=== PATIENT | male | born 1945 | race Hispanic/Latino ===

== ENCOUNTER 2021-10-30 16:15 | Emergency (ER) | payer BC, OTHER ==
--- OUTSIDE RECORDS SUMMARY | 2021-10-30 16:18 | XMS REPORT | Continuity of Care Document ---
:1945 Author Organization [facility] t Address [address] [place] [address] Care Team Providers Name Role Phone Mely Ashby MD Primary Care Physician Mehta_S Attending Clinician Unavailable Sebas Attending Clinician [phone] Symone_Juliet Attending Clinician Unavailable Lc_Migdalia Attending Clinician Unavailable Bunny Newell Attending Clinician Unavailable Melisaa_Venita Admitting Clinician Unavailable Rejohanna_A Admitting Clinician Unavailable Lc_Migdalia Admitting Clinician Unavailable Physician, Primary or Family Admitting Clinician Unavailabl e Payers Payer Name Policy Type Policy Number Effective Date Expiration Date S charlie [facility] [place] - [id number] 2020 [employer] (MEDICARE 00:00:00 REPLACEMENT/ADVANTA GE - HMO) [facility] [id number] 2020 OPTIONS (MEDICARE 00:00:00 SUPPLEMENT) [place]IC[place]: [id number] 2011 [employer] 00:00:00 Problems Condition Condition Condition Status Onset Resolution Last Treating Co mments Source Name Details Category Date Date Treatment Clinician Date Malignant Malignant Problem Active Nicanor wilma tumor of Tumor of 21 Family prostate Prostate 00:00: Practi c 00 e 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 02-16 Family 00:00: Practic 00 e Parkinson' Parkinson' Problem Active [facility] s disease s Disease 02-16 Fami ly 00:00: Practic 00 e Insomnia Insomnia Problem Active Torres ge 2-12 Family 00:00: Practic 00 e Benign Benign Problem Active [facility] prostatic Prostatic 2-12 Fami ly hyperplasi Hyperplasi 00:00: Pr actic a without a without 00 e outflow Outflow obstructio Obstructio n n No known No known Disease Metho di active active st problems problems Hospit a l Hypothyroi Hypothyroi Problem Active [facility] dis[facility] dism Family Practic e Hyperlipid Hyperlipid Problem Active [facility] emia emia [facility] Pract[facility] e Hypertensi Hypertensi Problem Active [facility] ve ve Family disorder Disorder Practi c e Allergies, Adverse Reactions, Alerts Allergy Allergy Status Severity Reaction(s) Onset Inactive Treating Comm ents Source Name Type Date Date Clinician No Known DA Active [facility] All[facility]ie 08-15 [facility] 00:00: [facility] [address] [facility] Family History Family Member Diagnosis Comments Start Date Stop Date Source Natural father No Known Problems Met [facility] Natural mother No Known Problems Met [facility] Social History Social Habit Start Date Stop Date Quantity Comments Source Tobacco use and 2017-11-30 2017-11-30 Smokeless tobacco Me [facility] exposure 00:00:00 00:00:00 non-user Hospital Sex Ass[birth year] At [birth year] [facility] 00:00:00 00:00:00 Hospital Smoking Status Start Date Stop Date Source Never smoked tobacco [facility] Medications Ordered Filled Start Stop Current Ordering Indication Dosage Frequency Signature Comments Components Source Medication Medication Date Date Medication? Clinician (SIG) Name Name amLODIPine- Yes 1{tbl} QD Take 1 Me thodi valsartan-h 4-[address] cthiazid 15:29: mouth Hospita 10-160-12.5 58 daily. l mg tablet levothyroxi Yes 75ug QD Take 75 Met hodi ne 4-[address] (SYNTHROID, 15:29: mouth Hospi ta LEVOXYL) 75 58 every l mcg tablet morning. simvastatin Yes 20mg QD Take 20 mg Methodi (ZOCOR) 20 4-[address] MG tablet 15:29: nightly. Hosp allan 58 l zolpidem Yes 10mg QD Take 10 mg Met hodi (AMBIEN) 10 4-[address] mg tablet 15:29: nightly as Ho spita 58 needed for l sleep. albuterol albuterol No albuterol [facility] sulfate HFA sulfate HFA sulfate Family 90 90 HFA 90 Practic mcg/actuati mcg/actuati mcg/actuat e on aerosol on aerosol ion inhaler inhaler aerosol inhaler amlodipine amlodipine No amlodipine [facility] 10 mg 10 mg 10 mg Family tablet TAKE tablet TAKE tablet Practic 1 TABLET BY 1 TABLET BY TAKE 1 e MOUTH EVERY MOUTH EVERY TABLET BY DAY DAY MOUTH EVERY DAY bicalutamid bicalutamid No bicalutami [facility] e 50 mg e 50 mg de 50 mg Famil y tablet TAKE tablet TAKE tablet Practic 1 TABLET 1 TABLET TAKE 1 e EVERY DAY EVERY DAY TABLET BY ORAL BY ORAL EVERY DAY ROUTE FOR ROUTE FOR BY ORAL 30 DAYS. 30 DAYS. ROUTE FOR 30 DAYS. doxycycline doxycycline No doxycyclin [facility] hyclate 100 hyclate 100 e hyclate Family mg tablet mg tablet 100 mg Pra ctic tablet e hydrochloro hydrochloro No hydrochlor [facility] thiazide thiazide othiazide Fa jeff 12.5 mg 12.5 mg 12.5 mg Practi c capsule capsule capsule e TAKE 1 TAKE 1 TAKE 1 CAPSULE BY CAPSULE BY CAPSULE BY MOUTH EVERY MOUTH EVERY MOUTH DAY DAY EVERY DAY levothyroxi levothyroxi No levothyrox [facility] ne 75 mcg ne 75 mcg ine 75 mcg Family tablet TAKE tablet TAKE tablet Practic 1 TABLET BY 1 TABLET BY TAKE 1 e MOUTH EVERY MOUTH EVERY TABLET BY DAY DAY MOUTH EVERY DAY ondansetron ondansetron No ondansetro [facility] 4 mg 4 mg n 4 mg Family disintegrat disintegrat disintegra Practic ing tablet ing tablet ting e tablet oxybutynin oxybutynin No oxybutynin [facility] chloride ER chloride ER chloride [facility] 10 mg 10 mg ER 10 mg Practic tablet,exte tablet,exte tablet,ext e nded nded ended release 24 release 24 release 24 hr TAKE 1 hr TAKE 1 hr TAKE 1 TABLET BY TABLET BY TABLET BY MOUTH EVERY MOUTH EVERY MOUTH DAY DAY EVERY DAY simvastatin simvastatin No simvastati [facility] 20 mg 20 mg n 20 mg Family tablet TAKE tablet TAKE tablet Practic 1 TABLET BY 1 TABLET BY TAKE 1 e MOUTH EVERY MOUTH EVERY TABLET BY DAY DAY MOUTH EVERY DAY solifenacin solifenacin No solifenaci [facility] 10 mg 10 mg n 10 mg Family tablet tablet tablet Practic e tamsulosin tamsulosin No tamsulosin [facility] 0.4 mg 0.4 mg 0.4 mg [facility] capsule capsule capsule Practi c e valsartan valsartan No valsartan [facility] 160 mg 160 mg 160 mg [facility] tablet TAKE tablet TAKE tablet Practic 1 TABLET BY 1 TABLET BY TAKE 1 e MOUTH EVERY MOUTH EVERY TABLET BY DAY DAY MOUTH EVERY DAY Immunizations Ordered Immunization Filled Immunization Date Status Commen ts Source Name Name influenza, high-dose, influenza, high-dose, 2021-05-11 [facility] quadrivalent quadrivalent 12:53:00 Practice COVID-19, mRNA, COVID-19, mRNA, 2021-04-07 Completed [facility] LNP-S, PF, 30 mcg/0.3 LNP-S, PF, 30 mcg/0.3 00:00:00 Practice mL dose mL dose (Colorescience) (Colorescience) COVID-19 (SARS-COV-2) COVID-19 (SARS-COV-2) 2020-10-16 [facility] vaccine, unspecified vaccine, unspecified 00:00:00 Practice COVID-19 (SARS-COV-2) COVID-19 (SARS-COV-2) 2020-09-21 Completed [facility] vaccine, unspecified vaccine, unspecified 00:00:00 Practice zoster recombinant zoster recombinant 2018-02-08 [facility] 11:56:00 Practice pneumococcal pneumococcal 2017-09-24 [facility] jeff polysaccharide PPV23 polysaccharide PPV23 13:08:00 Practice pneumococcal, pneumococcal, 2015-08-13 [facility] unspecified unspecified 00:00:00 Practice formulation formulation zoster live [facility] Vital Signs Vital Name Observation Time Observation Value Comments Source BP Diastolic 2021-08-26 00:00:00 70 mm[Hg] [facility] Height 2021-08-26 00:00:00 71 [in_i] [facility] BMI (Body Mass 2021-08-26 00:00:00 25.1 kg/m2 [facility] Index) Practice BP Systolic 2021-08-26 00:00:00 135 mm[Hg] [facility] Body Weight 2021-08-26 00:00:00 180 [lb_av] [facility] BP Diastolic 2021-05-11 00:00:00 70 mm[Hg] [facility] Height 2021-05-11 00:00:00 71 [in_i] [facility] BMI (Body Mass 2021-05-11 00:00:00 25.5 kg/m2 [facility] BP Systolic 2021-05-11 00:00:00 125 mm[Hg] [facility] Body Weight 2021-05-11 00:00:00 183 [lb_av] [facility] BP Diastolic 2021-02-16 00:00:00 65 mm[Hg] [facility] Height 2021-02-16 00:00:00 71 [in_i] [facility] BMI (Body Mass 2021-02-16 00:00:00 25.8 kg/m2 [facility] BP Systolic 2021-02-16 00:00:00 130 mm[Hg] [facility] Body Weight 2021-02-16 00:00:00 185 [lb_av] [facility] BP Diastolic 2021-02-03 00:00:00 65 mm[Hg] [facility] Height 2021-02-03 00:00:00 71 [in_i] [facility] BMI (Body Mass 2021-02-03 00:00:00 25.7 kg/m2 [facility] BP Systolic 2021-02-03 00:00:00 120 mm[Hg] [facility] Body Weight 2021-02-03 00:00:00 184 [lb_av] [facility] BP Diastolic 2020-11-24 00:00:00 70 mm[Hg] [facility] Height 2020-11-24 00:00:00 71 [in_i] [facility] BMI (Body Mass 2020-11-24 00:00:00 26.6 kg/m2 [facility] BP Systolic 2020-11-24 00:00:00 130 mm[Hg] [facility] Body Weight 2020-11-24 00:00:00 191 [lb_av] [facility] BP Diastolic 2020-02-23 00:00:00 68 mm[Hg] [facility] Height 2020-02-23 00:00:00 71 [in_i] [facility] BMI (Body Mass 2020-02-23 00:00:00 28.3 kg/m2 [facility] BP Systolic 2020-02-23 00:00:00 124 mm[Hg] [facility] Practice Body Weight 2020-02-23 00:00:00 203 [lb_av] [facility] Height 2019-12-18 00:00:00 71 [in_i] [facility] Practice BMI (Body Mass 2019-12-18 00:00:00 29.3 kg/m2 [facility] Body Weight 2019-12-18 00:00:00 210 [lb_av] [facility] Practice BP Diastolic 2019-05-22 00:00:00 66 mm[Hg] [facility] Height 2019-05-22 00:00:00 71 [in_i] [facility] Practice BMI (Body Mass 2019-05-22 00:00:00 29.3 kg/m2 [facility] BP Systolic 2019-05-22 00:00:00 124 mm[Hg] [facility] Practice Body Weight 2019-05-22 00:00:00 210.4 [lb_av] [facility] Practice BP Diastolic 2018-10-25 00:00:00 70 mm[Hg] [facility] Practice Height 2018-10-25 00:00:00 71 [in_i] [facility] Practice BMI (Body Mass 2018-10-25 00:00:00 28.6 kg/m2 [facility] BP Systolic 2018-10-25 00:00:00 130 mm[Hg] [facility] Practice Body Weight 2018-10-25 00:00:00 205 [lb_av] [facility] Practice Procedures Procedure Date / Time Performing Clinician Source Performed Prostatectomy 2021-05-13 00:00:00 Clarence price Practice electrocardiogram 2021-05-11 00:00:00 [facility] Elida aguilar Practice X-RAY OF SHOULDER 2 VIEW 2021-02-03 00:00:00 [facility] Colonoscopy 2016-08-13 00:00:00 Clarence price Practice Plan of Care Planned Activity Planned Date Details Comments Source Future Scheduled Test 2021-07-28 [facility] [code = COVID-19 VACCINE (1)] Future Scheduled Test 2021-07-28 Hepatitis C Method [facility] 03:24:29 screening (procedure) [code = [id number]] Future Scheduled Test 2021-07-28 COLONOSCOPY Method [facility] 03:24:29 SCREENING [code = COLONOSCOPY SCREENING] Future Scheduled Test 2021-07-28 SHINGLES VACCINES [facility] 03:24:29 (#2) [code = SHINGLES VACCINES (#2)] Future Scheduled Test 2021-07-28 INFLUENZA VACCINE [facility] 03:24:29 [code = INFLUENZA VACCINE] Future Appointment 2022-02-16 Kingsley Platt, [address] [facility] 09:00[facility] [address], [place] [address] Encounters Start End Encounter Admission Attending Care Care Encounter Source Date/Time Date/Time Type Type Clinicians Facility Department ID 2021-09-16 2021-09-16 Outpatient Mehta_S [facility]U U [id number] [place] 10:45:00 10:45:00 [facility] 2021-09-15 2021-09-15 Outpatient Mehta_S HMU [id number]- [place] 02:45:00 02:45:00 [facility] 2021-09-15 2021-09-15 Outpatient Mullen, HMU HMU [id number] 00:00:00 00:00:00 Gui [id number] 2021-09-14 2021-09-14 Outpatient Mehta_S HMU HMU [id number] [place] 02:19:00 02:19:00 [facility] 2021-08-29 2021-08-29 Outpatient Mehta_S HMU [id number] [place] 03:33:00 03:33:00 [facility] 2021-08-29 2021-08-29 Outpatient Mehta_S HMU HMU [id number] [place] 03:33:00 03:33:00 [facility] 2021-08-26 2021-08-26 Outpatient VFP VFP [id number] [facility] 03:49:00 03:49:00 [id number] Family Practic e 2021-08-26 2021-08-26 Outpatient Reichman_A VFP VFP [id number] [facility] 03:49:00 03:49:00 Family Practic e 2021-08-26 2021-08-26 [place] [facility]FP [place] - [id number] [facility] 00:00:00 00:00:00 [facility] MD: Medical - Prac tic [id number] VM_HOU_Suga e [facility] [address], [place] [address] , Ph. 2021-08-22 2021-08-22 Outpatient Lc_D VFP VFP [id number] - [facility] 11:23:00 11:23:00 [id number] Family Practic e 2021-08-15 2021-08-15 Emergency EM [place], [facility] [id number] [facility] 09:29:00 14:20:00 [facility] [id number] [facility] are [facility] 2021-08-15 2021-08-15 Emergency EM [place], HCANC [facility]ANC [id number] [facility] 09:29:00 14:20:00 [facility] 96 [facility] are [facility] 2021-08-05 2021-08-05 Outpatient Mehta_S HMU HMU [id number]- [place] 02:37:00 02:37:00 [facility] 2021-06-16 2021-06-16 Outpatient Reichman_A VFP VFP [id number] [facility] 04:32:00 04:32:00 [id number] Family Practic e 2021-06-16 2021-06-16 Outpatient Reichman_A VFP VFP [id number] [facility] 04:32:00 04:32:00 [id number] Family Practic e 2021-06-01 2021-06-01 Outpatient Mehta_S HMU HMU [id number]- [place] 12:06:00 12:06:00 [id number] [facility] 2021-05-31 2021-05-31 Outpatient Mehta_S HMU HMU [id number]- [place] 08:56:00 08:56:00 [id number] [facility] 2021-05-31 2021-05-31 Outpatient Mullen, HMU HMU [id number] 00:00:00 00:00:00 Gui [id number] 2021-05-26 2021-05-26 Outpatient Mehta_S HMU U [id number]- [place] 10:41:00 10:41:00 [id number] [facility] 2021-05-23 2021-05-23 Outpatient Mehta_S HMU U [id number] [place] 06:52:00 06:52:00 [id number] [facility] 2021-05-20 2021-05-20 Outpatient Mehta_S HMU U [id number] [place] 11:35:00 11:35:00 [id number] [facility] 2021-05-20 2021-05-20 Outpatient Mullen, HMU U [id number] 00:00:00 00:00:00 Gui [id number] 2021-05-19 2021-05-19 Outpatient Mehta_S HMU U [id number]- [place] 11:58:00 11:58:00 [id number] [facility] 2021-05-14 2021-05-14 Outpatient Mehta_S HMU U [id number] [place] 07:23:00 07:23:00 [id number] [facility] 2021-05-11 2021-05-11 Outpatient Reichman_A VFP VFP [id number] [place] [address] 12:09:00 12:09:00 [id number] Family Practic e 2021-05-11 2021-05-11 Outpatient Reichman_A VFP VFP [id number] [place] [address] 12:09:00 12:09:00 [id number] Family Practic e 2021-05-11 2021-05-11 [place] [facility] [place] - [id number] [facility] 00:00:00 00:00:00 Aristides Platt MD: Medical - Prac tic 560[address] DENISE_MARQUIS_Royce [address] [address] , Ph. 2021-05-10 2021-05-10 Outpatient Mehta_S HMU [id number] [place] 02:54:00 02:54:00 [id number] [facility] 2021-05-02 2021-05-02 Outpatient Mehta_S HMU HMU [id number] [place] 10:22:00 10:22:00 [id number] [facility] 2021-05-02 2021-05-02 Outpatient Reichman_A VFP VFP [id number] [facility] 04:06:00 04:06:00 [id number] Family Practic e 2021-05-02 2021-05-02 Outpatient VFP VFP [id number] [facility] 04:06:00 04:06:00 [id number] Family Practic e 2021-04-29 2021-04-29 Outpatient Mehta_S HMU HMU [id number] [place] 01:22:00 01:22:00 [id number] [facility] 2021-04-29 2021-04-29 Outpatient Mullen, HMU HMU [id number] 00:00:00 00:00:00 Gui [id number] 2021-04-27 2021-04-27 Outpatient Mehta_S HMU HMU [id number] [place] 04:22:00 04:22:00 [id number] [facility] 2021-04-27 2021-04-27 Outpatient Mehta_S HMU HMU [id number] [place] 04:22:00 04:22:00 [id number] [facility] 2021-04-22 2021-04-22 Outpatient Mehta_S HMU HMU [id number] [place] 09:29:00 09:29:00 [id number] [facility] 2021-04-19 2021-04-19 Outpatient Mehta_S HMU HMU [id number] [place] 02:35:00 02:35:00 [id number] [facility] 2021-04-19 2021-04-19 Outpatient Mullen, HMU HMU [id number] 00:00:00 00:00:00 Gui [id number] 2021-04-08 2021-04-08 Outpatient Mehta_S HMU HMU [id number] [place] 06:26:00 06:26:00 [id number] [facility] 2021-03-17 2021-03-17 Outpatient Reichman_A VFP VFP [id number] [facility] 11:21:00 11:21:00 [id number] Family Practic e 2021-03-10 2021-03-10 Outpatient Mehta_S HMU U [id number]- [place] 02:36:00 02:36:00 [id number] [facility] 2021-03-10 2021-03-10 Outpatient Mullen, HMU U [id number] 00:00:00 00:00:00 Gui [id number] 2021-03-02 2021-03-02 Outpatient Mehta_S HMU U [id number] [place] 10:43:00 10:43:00 [id number] [facility] 2021-03-02 2021-03-02 Outpatient Mehta_S U [facility] [id number] [place] 10:43:00 10:43:00 [id number] [facility] 2021-02-19 2021-02-19 Outpatient Reichman_A VFP VFP [id number] [place] [address] 08:40:00 08:40:00 [id number] Family Practic e 2021-02-16 2021-02-16 Outpatient Reichman_A VFP VFP [id number] [facility] 10:42:00 10:42:00 [id number] Family Practic e 2021-02-16 2021-02-16 [place] [facility] [place] - [id number] [facility] 00:00:00 00:00:00 [facility] MD: Medical - Prac tic [id number] [facility]_HOU_[place] e [address] [address] , Ph. 2021-02-09 2021-02-09 Outpatient Reichman_A VFP VFP [id number] [facility] 07:45:00 07:45:00 [id number] Family Practic e 2021-02-09 2021-02-09 Outpatient VFP VFP [id number] [place] [address] 07:45:00 07:45:00 [id number] Family Practic e 2021-02-03 2021-02-03 Outpatient Reichman_A VFP VFP [id number] [facility] 12:04:00 12:04:00 [id number] Family Practic e 2021-02-03 2021-02-03 [place] [facility] [place] - [id number] [facility] 00:00:00 00:00:00 [facility] MD: Medical - Prac tic [id number] [facility]_HOU_[place] e [facility] [address], [place] [address] , Ph. 2020-11-26 2020-11-26 Outpatient Reichman_A VFP VFP [id number] [facility] 08:24:00 08:24:00 [id number] Family Practic e 2020-11-26 2020-11-26 Outpatient VFP VFP [id number] [facility] 08:24:00 08:24:00 [id number] Family Practic e 2020-11-24 2020-11-24 Outpatient Reichman_A VFP VFP [id number] [facility] 10:35:00 10:35:00 [id number] Family Practic e 2020-11-24 2020-11-24 Outpatient Reed_D VFP VFP [id number] [facility] 09:36:00 09:36:00 [id number] Family Practic e 2020-11-24 2020-11-24 [place] VFP [place] - [id number] [facility] 00:00:00 00:00:00 [facility] MD: Medical - Prac tic [id number] VM_HOU_S[place] e [facility] [address], [place] [address] , Ph. 2020-11-22 2020-11-22 Outpatient Reed_D VFP VFP [id number] [facility] 12:22:00 12:22:00 [id number] Family Practic e 2020-03-11 2020-03-11 Outpatient Reichman_A VFP VFP [id number] [facility] 01:27:00 01:27:00 [id number] Family Practic e 2020-02-26 2020-02-26 Outpatient Reichman_A VFP VFP [id number] [facility] 05:20:00 05:20:00 [id number] Family Practic e 2020-02-23 2020-02-23 Outpatient Reichman_A VFP VFP [id number] [facility] 11:11:00 11:11:00 [id number] Family Practic e 2020-02-23 2020-02-23 Tone J VFP [place] - [id number] [facility] 00:00:00 00:00:00 Clarence Ashby Natalie price MD: [id number] Medical - Prac tic VM_HOU_S[place] e [facility] [address], [place] [address] , Ph. 2020-01-06 2020-01-06 Outpatient Reichman_A VFP VFP [id number] [facility] 03:00:00 03:00:00 [id number] Family Practic e 2020-01-06 2020-01-06 Outpatient VFP VFP [id number] [facility] 03:00:00 03:00:00 [id number] Family Practic e 2019-12-19 2019-12-19 Outpatient Reichman_A VFP VFP [id number] [facility] 08:48:00 08:48:00 [id number] Family Practic e 2019-12-19 2019-12-19 Outpatient VFP VFP [id number] [facility] 08:48:00 08:48:00 [id number] Family Practic e 2019-12-18 2019-12-18 Outpatient Reichman_A VFP VFP [id number] [facility] 01:14:00 01:14:00 [id number] Family Practic e 2019-12-18 2019-12-18 Tone [place] VFP [place] - [id number] [facility] 00:00:00 00:00:00 Clarence Ashbyargentina price MD: [id number] Medical - Prac tic VM_HOU_[place] [facility] [address] [address] , Ph. 2019-06-19 2019-06-19 Outpatient VFP VFP [id number] [facility] 12:04:00 12:04:00 [id number] Family Practic e 2019-05-22 2019-05-22 Tone [place] VFP [place] - [id number] [facility] 00:00:00 00:00:00 Clarence Ashby Natalie price MD: [id number] Family Practi c SW Practice - e [facility] [address], [place] [address] , Ph. 2018-10-25 2018-10-25 Tone Boone [facility] [place] - [id number] V illage 00:00:00 00:00:00 Clarence Ashby ly MD: [id number] [facility] [address], [place] [address] , Ph. Results Test Description Test Time Test Comments Results Result [facility] e Comments - CT ABD PELVIS 2021-08-15 W/CONT 12:16:00 [facility] 1945 Sex: M Gordon tient Name: NEISHA ZUNIGA JRO Unit No: [id number] EXAMS: CPT CODE: [id number] CT ABD PELVIS W/CONT 62293 CT ABDOMEN AND PELVIS DICTATION LOCATION A1 HISTORY: Abdominal pain. TECHNIQUE: Axial images the abdomen and pelvis were obtained following intravenous administration of 95 mL Isovue-300 contrast at 11:52 AM. No prior exams are available for comparison. All CT scans are performed using radiation dose reduction techniques. Technical factors are evaluated and adjusted to ensure appropriate moderation of exposure. Automated dose management technology is applied to adjust the radiation dose to minimize exposure while achieving a diagnostic-quality image. FINDINGS: The lung bases are clear. No pleural or pericardial effusion is seen. The liver, gallbladder, pancreas, spleen, right adrenal gland and kidneys are unremarkable. There appears be left adrenal hyperplasia. Diverticulosis is seen in the colon without evidence of acute inflammation. A small sized hiatal hernia is present. The appendix is normal. The remaining enteric structures of the abdomen and pelvis as well as the vascular structures and the genitourinary structures of the pelvis show no acute findings. No adenopathy, mass or fluid collection is seen in the abdomen, retroperitoneum or pelvis. Review of the skeleton with bone windows shows degenerative changes and probable old healed lower right rib fractures, but no acute or destructive process. IMPRESSION: 1. Small hiatal hernia. 2. Diverticulosis without evidence of diverticulitis. 3. Probable left adrenal gland hyperplasia. 4. No other obvious acute findings. at 1216 Reported and signed by: Derrick Reyna Jr, MD CC: Self Referred; Obinna Newell MD Technologist: Anisha Hemphill CTDI: 7.87 DLP: 455.39 Trscr Dt/Tm: 08/15/2021 (1216) by:EliseoFAM Electronic Signature Date/Time: 08/15/2021 (1216)Orig Print D/T: S: 08/15/2021 (1220) Name: ADE[facility]IGA [facility] [place]: [place] [address] : 1945 Age: 76 Sex: [place] [address] Loc: [facility] Exam Date: 08/15/2021 Status: REG ER PH: FAX: PAGE 1 Signed Report COVID 19 INHOUSE AG 2021-08-15 10:59:00 Test Item Value Reference Range Interpretation Comme nts COVID 19 INHOUSE AG (test code POSITIVE Negative A Critical Value reported toFirst = [id number]) Name:LORRAINETAMIRLEELEE Maldonado Last Name:ROB Title:RNRESULTS READ BACK AND VERIFIEDby [id number], on 08/15/21, @ 1059.Negative r esults do not preclude 2019-n CoV infection andshould not b e used as the sole basis for treat ment or otherpatient management deci sions. Negative results must be combined with clinical observ ations, patient history, andepi demiological information. B-TYPE NATRIURETIC [id number] 10:36:00 Test Item Value Reference Range Interpretation Comments B-TYPE NATRIURETIC PEPTIDE (test 180 pg/mL 0-100 H code = BNP) [id number] 10:20:00 Test Item Value Reference Range Interpretation Comments MAGNESIUM (test code = MAG) 1.9 mg/dL 1.8-2.4 N TROP-I HIGH [id number] 10:20:00 Test Item Value Reference Range Interpretation Comments TROP-I HIGH SENSITIVITY 7 pg/mL 0-78 N CAUT ION: Units of the (test code = TROPIHS) curren t test methodology (pg /mL) differ from th e prior test methodolog y (ng/mL) by a fa ctor of 1000. BASIC METABOLIC [id number] 10:20:00 Test Item Value Reference Range Interpretation Comments SODIUM (test code 129 mmol/L 135-145 L = NA) POTASSIUM (test 3.2 mmol/L 3.5-5.1 L code = K) CHLORIDE (test 92 mmol/L 98-107 L code = CL) CARBON DIOXIDE 27 mmol/L 21-32 N (test code = CO2) ANION GAP (test 13.2 2.0-16.0 N code = GAP) GLUCOSE (test code 128 mg/dL 65-99 H = GLU) BLOOD UREA 15 mg/dL 4-23 N NITROGEN (test code = BUN) GLOMERULAR >=60 max The estimated FILTRATION RATE estimate ml/min glomerula r (test code = GFR) filtration rate is computed usingpatient ra ce, age (>18), sex, and serum creatinin e. If anyof the neede d data elements a re missing the Laboratory mathieu ot compute an estimation of t he glomerular filtration rate . CREATININE (test 0.8 mg/dL 0.6-1.5 N code = CREAT) BUN/CREATININE 18.8 12.0-20.0 N RATIO (test code = BUN/CREA) CALCIUM (test code 8.2 mg/dL 8.5-10.1 L = CA) LIVER FUNCTION [id number] 10:20:00 Test Item Value Reference Range Interpretation Comments TOTAL PROTEIN 6.9 g/dL 6.4-8.2 N (test code = PROT) ALBUMIN (test code 3.4 g/dL 3.4-5.0 N = ALB) GLOBULIN (test 3.5 g/dL 2.3-3.5 N code = GLOB) BILIRUBIN TOTAL 0.4 mg/dL 0.2-1.2 N Use of this assay is not (test code = BILT) recommend ed for patients undergoingtreat ment with Eltrombopag due to the potential for falselyelevated results. BILIRUBIN DIRECT 0.1 mg/dL 0.0-0.3 N (test code = BILD) BILIRUBIN INDIRECT 0.3 mg/dL 0.0-0.8 N (test code = BILIND) SGOT/AST (test 23 U/L 15-37 N code = AST) SGPT/ALT (test 35 U/L 6-50 N code = ALT) ALKALINE 64 U/L 45-117 N PHOSPHATASE (test code = ALKP) [id number] 10:20:00 Test Item Value Reference Range Interpretation Comments LIPASE (test code = LIP) 500 U/L 73-393 H - XR CHEST 1 [id number] 10:15:00 [facility] 1945 Sex: MPatient Name: ADEOLA ZUNIGA JR Unit No: [id number] EXAMS: CPT CODE: [id number] XR CHEST 1 V [id number] EXAM: XR Chest 1 View INDICATION: Chest Pain LOCATION CODE: A1 COMPARISON: None available. TECHNIQUE: Frontal view of the chest was obtained. FINDINGS: The lungs are clear. There is nopleural effusion or pneumothorax. The cardiomediastinal silhouette is unremarkable. No acuteosseous abnormality is identified. There are several healed right rib fractures. IMPRESSION: No acute cardiopulmonary abnormality. at 1015 Reported and signed by: Alia Lowe M.D. CC: Obinna Newell MD Technologist: Austin Aguirre Time: DAP (Gy m2): Air Kerma (mGy): Trscr Dt/Tm: 08/15/2021 (1015) by:[email or web address] Electronic Signature Date/Time: 08/15/2021(1015)Orig Print D/T: S: 08/15/2021 (1018) Name: ADEOLA ZUNIGA JR [facility] [place] Phys: [place] [address] : 1945 Age: 76 Sex: [place] [id number] Loc: [place] Exam Date: 08/15/2021 Status: PRE ER PH: FAX: PAGE 1 Signed ReportCBC W/AUTO [id number] 10:01:00 Test Item Value Reference Range Interpretation Comments WHITE BLOOD CELL (test code = 3.5 10 3/uL 4.5-11.0 L WBC) RED BLOOD CELL (test code = 3.92 10 6/uL 4.30-5.90 L RBC) HEMOGLOBIN (test code = HGB) 11.9 g/dL 14.0-18.0 L HEMATOCRIT (test code = HCT) 33.1 % 40.0-55.0 L MEAN CELL VOLUME (test code = 84 fL 81-102 N MCV) MEAN CELL HGB (test code = 30.4 pg 26.0-34.0 N MCH) MEAN CELL HGB CONCENTRATION 36.0 g/dL 31.0-37.0 N (test code = MCHC) RED CELL DISTRIBUTION WIDTH 12.0 % 11.6-14.4 N (test code = RDW) PLATELET COUNT (test code = 164 10 3/uL 150-400 N PLT) MEAN PLATELET VOLUME (test 9.7 fL 9.0-12.6 N code = MPV) NEUTROPHIL % (test code = NT%) 77.5 % 33.0-76.0 H IMMATURE GRANULOCYTE % (test 0.3 % 0.0-1.0 N code = IG%) LYMPHOCYTE % (test code = LY%) 10.1 % 14.0-56.4 L MONOCYTE % (test code = MO%) 11.8 % 0.0-12.9 N EOSINOPHIL % (test code = EO%) 0.3 % 0.0-7.0 N BASOPHIL % (test code = BA%) 0.0 % 0-2.0 N NUCLEATED RBC % (test code = 0.0 % 0-0.2 N NRBC%) NEUTROPHIL # (test code = NT#) 2.69 10 3/uL 1.5-7.0 N IMMATURE GRANULOCYTE # (test 0.010 x10 3/uL 0.000-0.100 N code = IG#) LYMPHOCYTE # (test code = LY#) 0.35 10 3/uL 1.50-4.00 L MONOCYTE # (test code = MO#) 0.41 10 3/uL 0.20-0.80 N EOSINOPHIL # (test code = EO#) 0.01 10 3/uL 0.0-0.5 N BASOPHIL # (test code = BA#) 0.00 10 3/uL 0.0-0.1 N Triiodothyronine (T3) Free [Mass/volume] in Serum or [id number] 12:04:00 Test Item Value Reference Range Interpretation Comments T3 free (test code = T3 free) 2.57 pg/mL 1.71-3.71 [facility] [Mass/volume] in Serum or [id number] 12:04:00 Test Item Value Reference Range Interpretation Comments T3 free (test code = T3 free) 2.57 pg/mL 1.71-3.71 [facility] panel - Serum or [id number] 18:25:00 Test Item Value Reference Range Interpretation Comments HDL (test code = HDL) 47 mg/dL 40-60 triglyceride (test code = 99 mg/dL 0-149 triglyceride) VLDL calc. (test code = VLDL calc.) 20 mg/dL cholesterol/HDL ratio (test code = 3.4 mg/dL cholesterol/HDL ratio) non-HDL cholesterol calc. (test 112 mg/dL 0-160 code = non-HDL cholesterol calc.) cholesterol (test code = 159 mg/dL 0-199 cholesterol) Cholesterol in LDL [Mass/volume] in 92 mg/dL 0-130 Serum or Plasma (test code = 9-1) [facility] - Serum or [id number] 18:25:00 Test Item Value Reference Range Interpretation Comments HDL (test code = HDL) 47 mg/dL 40-60 triglyceride (test code = 99 mg/dL 0-149 triglyceride) VLDL calc. (test code = VLDL calc.) 20 mg/dL cholesterol/HDL ratio (test code = 3.4 mg/dL cholesterol/HDL ratio) non-HDL cholesterol calc. (test 112 mg/dL 0-160 code = non-HDL cholesterol calc.) cholesterol (test code = 159 mg/dL 0-199 cholesterol) Cholesterol in LDL [Mass/volume] in 92 mg/dL 0-130 Serum or Plasma (test code = 2089-1) [facility] 1999 panel - Serum or Plasma 2018-10-25 17:54:00 Test Item Value Reference Range Interpretation Comments ALT (test code = ALT) 13 U/L 0-55 AST (test code = AST) 16 U/L 5-34 BUN (test code = BUN) 22.5 mg/dL 8.4-25.7 alk phos (test code = alk phos) 81 unit/L 40-150 glucose (test code = glucose) 95 mg/dL 70-99 albumin (test code = albumin) 4.2 g/dL 3.5-5.0 creatinine (test code = 0.84 mg/dL 0.72-1.25 creatinine) eGFR non- (test >60 code = eGFR non-) total bilirubin (test code = 0.5 mg/dL 0.2-1.2 total bilirubin) eGFR - (test >60 code = eGFR - ) sodium (test code = sodium) 137 mEq/L 136-145 potassium (test code = potassium) 4.1 mEq/L 3.5-5.1 chloride (test code = chloride) 104 mmol/L 98-107 total protein (test code = total 7.1 g/dL 6.4-8.3 protein) calcium (test code = calcium) 9.3 mg/dL 8.8-10.0 CO2 (test code = CO2) 25.2 mmol/L 23.0-31.0 anion gap (test code = anion gap) 8 calc [facility] [Mass/volume] in Serum or Plasma 2018-10-25 17:54:00 Test Item Value Reference Range Interpretation Comments T4 free (test code = T4 free) 1.31 NG/dL 0.70-1.48 [facility] [Units/volume] in Serum or [id number] 17:54:00 Test Item Value Reference Range Interpretation Comments TSH (test code = TSH) 1.382 uIU/mL 0.350-4.940 [facility] 2000 panel - Serum or Plasma 2018-10-25 17:54:00 Test Item Value Reference Range Interpretation Comments ALT (test code = ALT) 13 U/L 0-55 AST (test code = AST) 16 U/L 5-34 BUN (test code = BUN) 22.5 mg/dL 8.4-25.7 alk phos (test code = alk phos) 81 unit/L 40-150 glucose (test code = glucose) 95 mg/dL 70-99 albumin (test code = albumin) 4.2 g/dL 3.5-5.0 creatinine (test code = 0.84 mg/dL 0.72-1.25 creatinine) eGFR non- (test >60 code = eGFR non-) total bilirubin (test code = 0.5 mg/dL 0.2-1.2 total bilirubin) eGFR - (test >60 code = eGFR - ) sodium (test code = sodium) 137 mEq/L 136-145 potassium (test code = potassium) 4.1 mEq/L 3.5-5.1 chloride (test code = chloride) 104 mmol/L 98-107 total protein (test code = total 7.1 g/dL 6.4-8.3 protein) calcium (test code = calcium) 9.3 mg/dL 8.8-10.0 CO2 (test code = CO2) 25.2 mmol/L 23.0-31.0 anion gap (test code = anion gap) 8 calc [facility] free [Mass/volume] in Serum or Plasma 2018-10-25 17:54:00 Test Item Value Reference Range Interpretation Comments T4 free (test code = T4 free) 1.31 NG/dL 0.70-1.48 [facility] [Units/volume] in Serum or [id number] 17:54:00 Test Item Value Reference Range Interpretation Comments TSH (test code = TSH) 1.382 uIU/mL 0.350-4.940 [facility]
[2021-10-30 17:35] LABS: Absolute Lymphocytes (CBC) 0.6 K/uL (0.7-4.9); Hematocrit 32.9 % (39.6-49.0); Lymphocytes % 14.8 % (15.3-44.8); MPV 7.5 fL (7.6-11.3); RBC Red Blood Cell Count 3.77 M/uL (4.33-5.43)
[2021-10-30 17:52] LABS: Potassium 3.7 mmol/L (3.5-5.1)
[2021-10-30 17:56] LABS: Troponin High Sensitivity 5.3 pg/mL (<58.9)
--- NOTE | 2021-10-30 17:58 | RAD REPORT ---
EXAM DESCRIPTION: RAD - Chest Single View - 10/30/2021 5:12 pm CLINICAL HISTORY: weakness COMPARISON: Portable 09/12/2014, portable 09/11/2014 TECHNIQUE: AP portable chest image was obtained 10/30/2021 5:12 pm . FINDINGS: No focal lung parenchymal process. No failure or volume overload. Interstitial pattern not clearly different from comparison. Heart and vasculature are normal. No measurable pleural effusion and no pneumothorax. Old rib trauma noted on the right. No acute aortic findings suspected. IMPRESSION: No acute cardiopulmonary process.
--- NOTE | 2021-10-30 19:00 | RAD REPORT ---
EXAM DESCRIPTION: CT - Head Brain Wo Cont - 10/30/2021 6:49 pm CLINICAL HISTORY: WEAKNESS COMPARISON: No comparisonsHEAD BRAIN W O CONTRAST dated 09/11/2014 TECHNIQUE: Axial 5 mm thick images of the head were obtained without IV contrast. All CT scans are performed using dose optimization technique as appropriate and may include automated exposure control or mA/KV adjustment according to patient size. FINDINGS: No intracranial hemorrhage, mass, edema or shift of mid-line structures. No acute infarcti on of the cortical level. No cortical edema or sulcal effacement. Moderate severity atrophy is presen t which has progressed slightly from 2014. Ventricles are in proportion to the amount of volume loss. Chronic ischemic change seen throughout the cerebral white matter extending into the basal ganglia, external capsule and internal capsule. Chronic ischemic changes are not clearly different from compar mirza. No abnormal extra-axial fluid collections. Mastoid air cells and visualized portions of the paranasal sinuses are clear. No acute bone findings seen. There is focal lucency in the left frontal bone that extends from inner table to outer table. The left frontal lobe parenchyma extends into the inner table defect. Etiology for the bone change is uncertain. There is been no changes over the long interval since the 2014 stud y. IMPRESSION: Negative non-contrast CT head examination for acute intracranial. Moderate severity atrophy and chronic ischemic changes are present with atrophy showing some progress ion from 2014.
--- NOTE | 2021-10-30 19:45 | EDPHYS ---
Physician Documentation [facility] Name: Joseluis Bowles Age: 76 yrs Sex: Male : 1945 Arrival Date: 10/30/2021 Time: 16:16 Bed 17 Private MD: Juan Gardner R ED Physician Chano Palma HPI: 10/30 18:54 This 76 yrs old Male presents to ER via Ambulatory with complaints of Weakness.kdr 18:54 The patient presents to the emergency department with weakness of the entire body, kdr generalized weakness. Onset: The symptoms/episode began/occurred gradually, 5 day(s) ago. Context: occurred at home, occurred while the patient was at rest, Light activity. Associated signs and symptoms: The patient has no apparent associated signs or symptoms. Severity of symptoms: At their worst the symptoms were mild moderate just prior to arrival, in the emergency department the symptoms are unchanged. Patient's baseline: Neuro: alert and fully oriented, Motor: no deficits, Ambulation: walks without assistance, Speech: normal for age. Current symptoms: Patient is without focal weakness, he is just globally weak. The patient has not experienced similar symptoms in the past. The patient has not recently seen a physician. Patient's significant other states over the past year the patient's speech has become more slurred. He has no new focal neurologic deficits. He said over the past year diminished strength and speech. Historical: - Allergies: 16:24 No Known Allergies; ld1 - Home Meds: 16:24 Lisinopril Oral [Active]; ld1 - PMHx: 16:24 prostate cancer; Hypertensive disorder; Parkinsons; ld1 - PSHx: 16:24 None; ld1 - Immunization history:: Adult Immunizations up to date, Client reports receiving the 2nd dose of the Covid vaccine. - Social history:: Smoking status: Patient denies any tobacco usage or history of. Patient/guardian denies using alcohol. ROS: 18:54 Constitutional: Negative for fever, chills, and weight loss, Eyes: Negative for injury, kdr pain, redness, and discharge, ENT: Negative for injury, pain, and discharge, Neck: Negative for injury, pain, and swelling, Cardiovascular: Negative for chest pain, palpitations, and edema, Respiratory: Negative for shortness of breath, cough, wheezing, and pleuritic chest pain, Abdomen/GI: Negative for abdominal pain, nausea, vomiting, diarrhea, and constipation, Back: Negative for injury and pain, : Negative for injury, bleeding, discharge, and swelling, MS/Extremity: Negative for injury and deformity, Skin: Negative for injury, rash, and discoloration, Psych: Negative for depression, anxiety, suicide ideation, homicidal ideation, and hallucinations, Allergy/Immunology: Negative for hives, rash, and allergies, Endocrine: Negative for neck swelling, polydipsia, polyuria, polyphagia, and marked weight changes, Hematologic/Lymphatic: Negative for swollen nodes, abnormal bleeding, and unusual bruising. 18:54 Neuro: Positive for altered mental status, weakness, Negative for Exam: 18:53 ECG was reviewed by the Attending Physician. kdr 19:46 Constitutional: This is a well developed, well nourished patient who is awake, alert, kdr and in no acute distress. Head/Face: Normocephalic, atraumatic. Eyes: Pupils equal round and reactive to light, extra-ocular motions intact. Lids and lashes normal. Conjunctiva and sclera are non-icteric and not injected. Cornea within normal limits. Periorbital areas with no swelling, redness, or edema. Neck: Trachea midline, no thyromegaly or masses palpated, and no cervical lymphadenopathy. Supple, full range of motion without nuchal rigidity, or vertebral point tenderness. No Meningismus. Chest/axilla: Normal chest wall appearance and motion. Nontender with no deformity. No lesions are appreciated. Cardiovascular: Regular rate and rhythm with a normal S1 and S2. No gallops, murmurs, or rubs. Normal PMI, no JVD. No pulse deficits. Respiratory: Lungs have equal breath sounds bilaterally, clear to auscultation and percussion. No rales, rhonchi or wheezes noted. No increased work of breathing, no retractions or nasal flaring. Abdomen/GI: Soft, non-tender, with normal bowel sounds. No distension or tympany. No guarding or rebound. No evidence of tenderness throughout. Back: No spinal tenderness. No costovertebral tenderness. Full range of motion. Skin: Warm, dry with normal turgor. Normal color with no rashes, no lesions, and no evidence of cellulitis. MS/ Extremity: Pulses equal, no cyanosis. Neurovascular intact. Full, normal range of motion. Neuro: Awake and alert, GCS 15, oriented to person, place, time, and situation. Cranial nerves II-XII grossly intact. Motor strength 5/5 in all extremities. Sensory grossly intact. Cerebellar exam normal. Normal gait. Psych: Awake, alert, with orientation to person, place and time. Behavior, mood, and affect are within normal limits. Vital Signs: 16:24 BP 138 / 67; Pulse 76; Resp 18; Temp 98.6(TE); Pulse Ox 99% on R/A; Weight 80.74 kg; ld1 Height 5 ft. 11 in. (180.34 cm); Pain 0/10; 17:20 BP 130 / 69; Pulse 84; Resp 15; Pulse Ox 98% on R/A; vg1 18:30 BP 140 / 59; Pulse 69; Resp 13; Pulse Ox 99% on R/A; vg1 20:00 BP 140 / 60; Pulse 70; Resp 16; Pulse Ox 100% on R/A; st1 16:24 Body Mass Index 24.83 (80.74 kg, 180.34 cm) ld1 MDM: 19:45 Patient medically screened. kdr 19:46 Data reviewed: vital signs, nurses notes, lab test result(s), radiologic studies. kdr Counseling: I had a detailed discussion with the patient and/or guardian regarding: the historical points, exam findings, and any diagnostic results supporting the discharge/admit diagnosis, lab results, radiology results, the need for outpatient follow up. 10/30 16:36 Order name: Basic Metabolic Panel; Complete Time: 18:17 kdr 10/30 16:36 Order name: CBC with Diff; Complete Time: 18:17 kdr 10/30 16:36 Order name: Troponin HS; Complete Time: 18:17 kdr 10/30 16:36 Order name: XRAY Chest (1 view); Complete Time: 18:17 kdr 10/30 18:16 Order name: CT Head Brain wo Cont kdr 10/30 18:17 Order name: Head Brain Wo Cont; Complete Time: 19:27 EDMS 10/30 16:36 Order name: EKG; Complete Time: 16:36 kdr 10/30 16:36 Order name: Cardiac monitoring; Complete Time: 17:33 kdr 10/30 16:36 Order name: EKG - Nurse/Tech; Complete Time: 17:33 kdr 10/30 16:36 Order name: IV Saline Lock; Complete Time: 17:33 kdr 10/30 16:36 Order name: Labs collected and sent; Complete Time: 17: kdr 10/30 16:36 Order name: O2 Per Protocol; Complete Time: 17:33 kdr 10/30 16:36 Order name: O2 Sat Monitoring; Complete Time: 17:33 kdr EC:53 Rate is 65 beats/min. Rhythm is regular, Sinus Rhythm with Right bundle branch block. kdr QRS [place] is Normal. HI interval is normal. QRS interval is normal. QT interval is normal. Clinical impression: NSR w/ Non-specific ST/T Changes. Administered Medications: No medications were administered Disposition Summary: 10/30/21 19:45 Discharge Ordered Location: Home kdr Problem: new kdr Symptoms: have improved kdr Condition: Stable kdr Diagnosis - Weakness kdr Followup: kdr - With: Juan Gardner MD - When: 2 - 3 days - Reason: If symptoms return, Further diagnostic work-up, Recheck today's complaints, Continuance of care, Re-evaluation by your physician Discharge Instructions: - Discharge Summary Sheet kdr - Fatigue kdr - Weakness, [id number] kdr - Deconditioning kdr Forms: - Medication Reconciliation Form kdr - Thank You Letter kdr Signatures: Dispatcher [employer] Chano Jacobs MD MD kdr Adriana Gastelum, RN RN ld1
--- NOTE | 2021-10-30 19:45 | ER ---
Nurse's Notes [facility] Name: Joseluis Bowles Age: 76 yrs Sex: Male : 1945 Arrival Date: 10/30/2021 Time: 16:16 Bed 17 Private MD: Juan Gardner R Diagnosis: Weakness Presentation: 10/30 16:24 Chief complaint: Patient states: I have been feeling weak for 4-5 days, it is getting ld1 worse and I feel like I can barely walk. Coronavirus screen: At this time, the client does not indicate any symptoms associated with coronavirus-19. Ebola Screen: No symptoms or risks identified at this time. Risk Assessment: Do you want to hurt yourself or someone else? Patient reports no desire to harm self or others. Onset of symptoms was October 30, 2021. 16:24 Method Of Arrival: Ambulatory ld1 16:24 Acuity: JANY 3 ld1 20:01 Initial Sepsis Screen: Does the patient meet any 2 criteria? No. Patient's initial st1 sepsis screen is negative. Does the patient have a suspected source of infection? No. Patient's initial sepsis screen is negative. Triage Assessment: 16:27 General: Appears in no apparent distress. comfortable, Behavior is calm, cooperative, ld1 appropriate for age. Pain: Denies pain. Neuro: Level of Consciousness is awake, alert, obeys commands, Oriented to person, place, time, situation, Appropriate for age. Cardiovascular: Capillary refill < 3 seconds Patient's skin is warm and dry. Respiratory: Airway is patent Respiratory effort is even, unlabored, Respiratory pattern is regular, symmetrical. GI: Abdomen is flat, non-distended. : No signs and/or symptoms were reported regarding the genitourinary system. Derm: No signs and/or symptoms reported regarding the dermatologic system. Musculoskeletal: Reports weakness in "all over body". Historical: - Allergies: 16:24 No Known Allergies; ld1 - Home Meds: 16:24 Lisinopril Oral [Active]; ld1 - PMHx: 16:24 prostate cancer; Hypertensive disorder; Parkinsons; ld1 - PSHx: 16:24 None; ld1 - Immunization history:: Adult Immunizations up to date, Client reports receiving the 2nd dose of the Covid vaccine. - Social history:: Smoking status: Patient denies any tobacco usage or history of. Patient/guardian denies using alcohol. Screenin:33 Abuse screen: Denies threats or abuse. Nutritional screening: No deficits noted. vg1 Tuberculosis screening: No symptoms or risk factors identified. Fall Risk No fall in past 12 months (0 pts). No secondary diagnosis (0 pts). IV access (20 points). Ambulatory Aid- None/Bed Rest/Nurse Assist (0 pts). Gait- Normal/Bed Rest/Wheelchair (0 pts) Mental Status- Oriented to own ability (0 pts). Total Britt Fall Scale indicates No Risk (0-24 pts). Assessment: 16:35 General: Appears in no apparent distress. uncomfortable, Behavior is calm, cooperative. vg1 Pain: Denies pain. Neuro: Level of Consciousness is awake, alert, obeys commands, Oriented to person, place, time, situation. Cardiovascular: Patient's skin is warm and dry. Respiratory: Airway is patent Respiratory effort is even, unlabored. GI: Patient currently denies diarrhea, pain, vomiting. : No signs and/or symptoms were reported regarding the genitourinary system. EENT: No signs and/or symptoms were reported regarding the EENT system. Derm: Skin is intact, is healthy with good turgor. Musculoskeletal: Circulation, motion, and sensation intact. 17:35 Reassessment: Patient appears in no apparent distress at this time. No changes from vg1 previously documented assessment. Patient and/or family updated on plan of care and expected duration. Pain level reassessed. Patient is alert, oriented x 3, equal unlabored respirations, skin warm/dry/pink. 18:30 Reassessment: Patient appears in no apparent distress at this time. No changes from vg1 previously documented assessment. Patient and/or family updated on plan of care and expected duration. Pain level reassessed. Patient is alert, oriented x 3, equal unlabored respirations, skin warm/dry/pink. Vital Signs: 16:24 BP 138 / 67; Pulse 76; Resp 18; Temp 98.6(TE); Pulse Ox 99% on R/A; Weight 80.74 kg; ld1 Height 5 ft. 11 in. (180.34 cm); Pain 0/10; 17:20 BP 130 / 69; Pulse 84; Resp 15; Pulse Ox 98% on R/A; vg1 18:30 BP 140 / 59; Pulse 69; Resp 13; Pulse Ox 99% on R/A; vg1 20:00 BP 140 / 60; Pulse 70; Resp 16; Pulse Ox 100% on R/A; st1 16:24 Body Mass Index 24.83 (80.74 kg, 180.34 cm) ld1 ED Course: 16:16 Patient arrived in ED. as 16:16 Juan Gardner MD is Private Physician. as 16:27 Triage completed. ld1 16:27 Arm band placed on right wrist. ld1 16:33 Merlyn Hemphill, RN is Primary Nurse. vg1 16:35 Chano Palma MD is Attending Physician. kdr 17:12 XRAY Chest (1 view) In Process Unspecified. EDMS 17:20 No provider procedures requiring assistance completed. Inserted saline lock: 20 gauge vg1 in left antecubital area, using aseptic technique. ,using aseptic technique. Completed by Nora PASCAL Blood collected. 17:33 Patient has correct armband on for positive identification. Bed in low position. Call vg1 light in reach. Side rails up X 1. Adult w/ patient. 18:49 Head Brain Wo Cont In Process Unspecified. EDMS 19:44 Juan Gardner MD is Referral Physician. kdr 19:52 Primary Nurse role handed off by Merlyn Hemphill, NAIDA cs9 20:00 Margarita Jeff, NAIDA is Primary Nurse. st1 20:01 IV discontinued, intact, bleeding controlled, No redness/swelling at site. Pressure st1 dressing applied. Administered Medications: No medications were administered Outcome: 19:45 Discharge ordered by . kdr 20:00 Discharged to home ambulatory. st1 20:00 Condition: good 20:00 Discharge instructions given to patient, family, Instructed on discharge instructions, follow up and referral plans. 20:02 Patient left the ED. st1 Signatures: Dispatcher [employer] EDMS Chano Palma MD MD kdr Sandra Joseph as Merlyn Hemphill, RN RN vg1 Adriana Gastelum RN RN ld1 Melinda Velasquez cs9 Margarita Jeff RN RN st1
[2021-10-30 22:55] VITALS: TEMP 98.6
[2021-10-30 22:59] VITALS: BP 140/60; O2SAT 100
--- NOTE | 2021-10-31 08:21 | EKG ---
Test Date: 2021-10-30 Test Time: 17:22:38 Card Boxer: PAVITHRA MEASUREMENT RESULTS: Intervals: Rate: 65 DE: 198 QRSD: 94 QT: 422 QTc: 438 [place]: P: 66 DE: 198 QRS: 56 T: 50 INTERPRETIVE STATEMENTS: Normal sinus rhythm Incomplete right bundle branch block Borderline ECG Compared to ECG 09/12/2014 06:03:49 No significant changes Electronically Signed On 10-31-21 08:19:33 CDT by Quentin Flanagan
== END 2021-10-30 20:02 | disposition home or self-care (01) ==
LOC: ER 16:15
DX: R53.1 Weakness (principal); I10 Essential (primary) hypertension; G20 Parkinson's disease; Z85.46 Personal history of malignant neoplasm of prostate
CPT/HCPCS: 36415; 70450; 71045; 80048; 84484; 85025; 93005; 99284